=== PATIENT | female | born 1980 | race Caucasian/White ===

== ENCOUNTER 2022-03-20 18:11 | Emergency (ER) | payer OTHER, SELFPAY ==
[2022-03-20 18:23] VITALS: BP 140/103; PULSE 116; RESP 18; TEMP 37.7; O2SAT 96; BMI 22.7
--- NOTE | 2022-03-20 18:43 | ED_ITS ---
HPI - General Adult General Chief complaint: Cough Stated complaint: Fever, cough Time Seen by Provider: 03/20/22 18:19 History of Present Illness HPI narrative: This 41-year-old female comes in reporting fever, cough, nasal congestion that started about 3 or 4 days ago. She has been using [id number] medicines as needed and directed. She does not report any shortness of breath. Related Data Home Medications Medication Instructions Recorded Confirmed fluticasone propionate 115 inhalation 03/20/22 mcg-salmeterol 21 mcg/actuation HFA inhaler (Advair HFA) tiotropium bromide 18 mcg capsule inhalation 03/20/22 with inhalation device (Spiriva with HandiHaler) Previous Rx's Medication Instructions Recorded acetaminophen 300 mg-codeine 30 mg 1 tab PO Q6H PRN pain #20 tabs 03/20/22 tablet Allergies Allergy/AdvReac Type Severity Reaction Status Date / Time No Known Drug Allergies Allergy Verified 03/20/22 18:28 Review of Systems Status of ROS: Reports: 10 or more systems reviewed and unremarkable except as noted in History and below Narrative: Constitutional: No weight gain or loss. Recurrent fevers over the past couple days. Eyes: No discharge. No vision changes. HENT: Nasal congestion, no sore throat, no ear pain. Cardiovascular: No chest pain, no palpitations. Respiratory: No shortness of breath, no wheezes. She reports a cough. Gastrointestinal: No abdominal pain. She had vomiting and diarrhea about 10 days ago which resolved after 2 or 3 days. Genitourinary: No dysuria, no hematuria. Musculoskeletal: Normal range of motion. Skin: No rashes, no pruritis. Neurological: No dizziness, weakness, sensory change, speech change. Endo/Heme/Allergies: No bruising or bleeding. No polydipsia. Pysch: no suicidality, no anxiety, no insomnia. All other systems reviewed and are negative. PFSH PFSH Social History Smoking Status: Never smoker How often do you have a drink containing alcohol: never How often do you have six or more drinks on one occasion: Never AUDIT-C Alcohol total score: 0 Exam Narrative: Exam Narrative: Constitutional: Well-developed, well-nourished, no acute distress. HEENT: Normocephalic, atraumatic. Neck: Normal range of motion. Nontender. Supple. Heart: Regular. No murmurs. Normal rate. Intact distal pulses. Lungs: Clear to auscultation. No chest discomfort. No wheezes, rhonchi, or rales. Abdomen: Normal bowel sounds. Nontender. No rebound tenderness. Genitalia: Deferred. Back: No midline tenderness. Normal range of motion. Extremities: Normal range of motion. No injury. Skin: Intact. No rash. Warm. No erythema or pallor. Neurologic: No altered sensation. No weakness. Alert and oriented. Psychiatric: No suicidality. No anxiety or depression. No insomnia. Nursing notes and vitals signs are reviewed. Const: Vital Signs, click to edit/add: Vital Signs - 24 hr 03/20/22 18:23 Temperature 99.9 F H Pulse Rate [Pulse Oximeter] 116 H Respiratory Rate 18 [facility] 140/103 H Pulse Oximetry 96 Oxygen Delivery Me thod Room Air Course Vital Signs Vital signs: Initial Vital Signs Temperature 99.9 F H 03/20/22 18:23 Temperature Source Temporal Artery Scan 03/20/22 18:23 Pulse Rate 116 H 03/20/22 18:23 Respiratory Rate 18 03/20/22 18:23 Blood Pressure 140/103 H 03/20/22 18:23 Blood Pressure Mean 115 03/20/22 18:23 Blood Pressure Position Supine 03/20/22 18:23 Pulse Oximetry 96 03/20/22 18:23 Oxygen Delivery Method 03/20/22 18:23 Vital Signs Temperature 99.9 F H 03/20/22 18:23 Pulse Rate 116 H 03/20/22 18:23 Respiratory Rate 18 03/20/22 18:23 Blood Pressure 140/103 H 03/20/22 18:23 Pulse Oximetry 96 03/20/22 18:23 Oxygen Delivery Method 03/20/22 18:23 Temperature 99.9 F H 03/20/22 18:23 Pulse Rate 116 H 03/20/22 18:23 Respiratory Rate 18 03/20/22 18:23 Blood Pressure 140/103 H 03/20/22 18:23 Pulse Oximetry 96 03/20/22 18:23 Oxygen Delivery Method 03/20/22 18:23 Medical Decision Making MDM Narrative Medical decision making narrative: This patient comes in with typical symptoms of influenza and the nasal pharyngeal swab results returned positive for influenza A. She is beyond the time frame where Hernániflu is indicated. She did receive an oral dose of dexamethasone 10 mg. I did also provide prescription for Zofran and Tylenol 3. Lab Data Labs: Lab Results 03/20/22 Range/Units 18:31 SARS-CoV-2 (PCR) Negative SARS-CoV-2 (Negative) Influenza Type A (PCR) POSITIVE PCR FLU A A (Negative) Influenza Type B (PCR) Negative PCR FLU B (Negative) RSV (PCR) Negative PCR RSV (Negative) Discharge Plan Discharge Clinical Impression: Influenza A Patient Disposition: Home, Self-Care Condition: Unchanged Additional Instructions: Take medication as needed and indicated. Follow up with MD or return if worsening. Prescriptions: New acetaminophen-codeine 300-30 mg tablet 1 tab PO Q6H PRN (Reason: pain) Qty: 20 0RF No Action Spiriva with HandiHaler 18 mcg capsule, w/inhalation device INHALATION Label Comments: INHALE 1 CAPSULE (2 PUFFS) BY MOUTH DAILY Advair HFA 115-21 mcg/actuation HFA aerosol inhaler INHALATION Label Comments: PLEASE SEE ATTACHED FOR DETAILED DIRECTIONS Follow Up/Referrals: Provider,Not a Local [Primary Care Provider] - Stand Alone Forms: [employer] Info Instructions
[2022-03-20] MEDS: dexAMETHasone 10 MG/ML inj PO (18:53)
[2022-03-20 19:15] LABS: PCR FLU A POSITIVE PCR FLU A (Negative); PCR FLU B Negative PCR FLU B (Negative); PCR RSV Negative PCR RSV (Negative)
[2022-03-20 19:28] LABS: SARS PCR* Negative SARS-CoV-2 (Negative)
[2022-03-20] MEDS: KETOROLAC 30 MG/ML inj IM (19:43)
[2022-03-20 19:45] VITALS: PULSE 106; RESP 16; O2SAT 96
== END 2022-03-20 19:51 | disposition home or self-care (01) ==
PROVIDERS: Emergency Provider Emergency Medicine Emergency Medical Services
DX: J09.X2 Influenza due to identified novel influenza A virus with other respiratory manifestations (principal)
CPT/HCPCS: 87502; 87634; 87635; 96372; 99284; J1100; J1885

== ENCOUNTER 2023-01-26 14:22 | Outpatient (CLI) | payer OTHER, SELFPAY ==
--- NOTE | 2023-01-26 14:40 | CRLHL7_ITS ---
For Patients: As a result of the Century Cures Act, medical imaging exams and procedure reports are released immediately into your electronic medical record. You may view this report before your referring provider. If you have questions, please contact your health care provider. BILATERAL SCREENING MAMMOGRAM WITH COMPUTER-AIDED DETECTION TECHNIQUE: CC and MLO views were obtained. These mammographic images have been obtained using full-field digital technique. These mammographic images were interpreted with the benefit of computer-aided detection. COMPARISON FILM: Baseline. FINDINGS: The breasts are heterogeneously dense, which may obscure small masses IMPRESSION: There is no radiographic evidence for malignancy. ASSESSMENT: BI-RADS Category 1: Negative RECOMMENDATION: Routine screening mammogram in 1 year. A lay language report of this examination will be provided to the patient. Ren Diaz M.D. Diagnostic Radiologist [email or web address] ADDISON/Dictated by: Ren Diaz MD @ 01/27/2023 11:54:00 AM (Electronically Signed)
== END 2023-01-26 14:23 | disposition home or self-care (01) ==
PROVIDERS: Visit Provider Family Medicine
DX: Z12.31 Encounter for screening mammogram for malignant neoplasm of breast (principal); R92.2 Inconclusive mammogram
CPT/HCPCS: 77067

== ENCOUNTER 2024-03-13 07:42 | Emergency (ER) | payer OTHER, SELFPAY ==
[2024-03-13 07:51] VITALS: BP 127/87; PULSE 85; RESP 18; TEMP 36.8; O2SAT 99; BMI 23.9
--- NOTE | 2024-03-13 08:01 | ED.GENADULT ---
HPI - General Adult General Chief complaint: Abdominal Pain Stated complaint: Abdominal Pain R side Time Seen by Provider: 03/13/24 08:01 History of Present Illness HPI narrative: Patient presents to the emergency department complaining of right sided abdominal pain. Patient states this pain has been there for a month and progressively gotten worse. Patient's primary care provider ordered a CT scan which was done [address] scan per patient showed fluid in her bowels and was put on anti biotics. Patent has a colonoscopy scheduled on the . Would like to make sure nothing was missed. Has appendix had gallbladder removed. 43-year-old woman presenting to the emergency department with complaint of right-sided sharp abdominal pain waxes and wanes. Has been present now about 4 weeks. Today escalated in pain though not having so much pain at the moment that she would feel like needs pain medication. Did take some tramadol that was available in the home yesterday. Was seen 2 weeks ago and ordered for CT imaging which appears to have shown a ?colitis? and was given 3 day course of antibiotics. Has not changed anything. Does have a scheduled colonoscopy as well. History of cholecystectomy and no known problems related to this. Has not had any fever. No hematochezia. Stools have been ?sludgey Related Data Home Medications ?Medication ?Instructions ?Recorded ?Confirmed fluticasone propionate 115 inhalation 03/20/22 mcg-salmeterol 21 mcg/actuation HFA inhaler (Advair HFA) tiotropium bromide 18 mcg capsule inhalation 03/20/22 with inhalation device (Spiriva with HandiHaler) Previous Rx's ?Medication ?Instructions ?Recorded hyoscyamine sulfate 0.125 mg tablet 0.125 - 0.25 mg (1 - 2 x 0.125 mg) 03/13/24 PO QID PRN cramping #30 tabs Allergies Allergy/AdvReac Type Severity Reaction Status Date / Time bee venom protein (honey bee) Allergy Unknown Abdominal Verified 03/13/24 07:57 Pain Review of Systems Status of ROS: Reports: 6 or more systems reviewed and unremarkable except as noted in History and below [facility] Medical History History of vitamin D deficiency ?Z86.39 - Personal history of other endocrine, nutritional and metabolic disease (ICD-10) History of vitamin B deficiency ?Z86.39 - Personal history of other endocrine, nutritional and metabolic disease (ICD-10) History of positive purified protein derivative test (01/2017) ?Z92.89 - Personal history of other medical treatment (ICD-10) History of migraine ?Z86.69 - Personal history of other diseases of the nervous system and sense organs (ICD-10) History of eczema ?Z87.2 - Personal history of diseases of the skin and subcutaneous tissue (ICD-10) Surgical History Status post laparoscopic cholecystectomy (09/2018) ?Z90.49 - Acquired absence of other specified parts of digestive tract (ICD-10) History of tonsillectomy (11/2015) ?Z90.89 - Acquired absence of other organs (ICD-10) Family History (Updated 03/23/22 @ 13:08 by Mirela Poole ~ PSR) Other Diabetes Family history of ASCVD Rheumatic aortic disease Social History Smoking Status: Never smoker How often do you have a drink containing alcohol: never How often do you have six or more drinks on one occasion: Never AUDIT-C Alcohol total score: 0 Non-prescribed substance use: denies use Exam Narrative: Exam Narrative: Calm. Pleasant. Skin is warm and dry. She is well-perfused peripherally. No edema. Breathing easily. Heart in regular rate and rhythm without murmur rub or gallop. Soft abdomen. Nontender. No masses Const: Vital Signs, click to edit/add: Vital Signs - 24 hr 03/13/24 07:51 Temperature 98.2 F Pulse Rate [Right Pulse Oximeter] 85 Respiratory Rate 18 Blood Pressure [Ri ght Upper Arm] 127/87 Pulse Oximetry 99 Oxygen Delivery Me thod Room Air Documenting provider has reviewed patient's vital signs: yes Course Vital Signs Vital signs: Initial Vital Signs Temperature 98.2 F 03/13/24 07:51 Temperature Source Temporal Artery Scan 03/13/24 07:51 Pulse Rate 85 03/13/24 07:51 Pulse Rhythm Regular 03/13/24 07:51 Pulse Strength 3+ Normal 03/13/24 07:51 Respiratory Rate 18 03/13/24 07:51 Blood Pressure 127/87 03/13/24 07:51 Blood Pressure Mean 100 03/13/24 07:51 Blood Pressure Position Sitting 03/13/24 07:51 Pulse Oximetry 99 03/13/24 07:51 Oxygen Delivery Method Room Air 03/13/24 07:51 Vital Signs Temperature 98.2 F 03/13/24 07:51 Pulse Rate 85 03/13/24 07:51 Respiratory Rate 18 03/13/24 07:51 Blood Pressure 127/87 03/13/24 07:51 Pulse Oximetry 99 03/13/24 07:51 Oxygen Delivery Method Room Air 03/13/24 07:51 Temperature 98.2 F 03/13/24 07:51 Pulse Rate 85 03/13/24 07:51 Respiratory Rate 18 03/13/24 07:51 Blood Pressure 127/87 03/13/24 07:51 Pulse Oximetry 99 03/13/24 07:51 Oxygen Delivery Method Room Air 03/13/24 07:51 Medical Decision Making MDM Narrative Medical decision making narrative: Would suspect more of a delayed recovery here from colitis/enteritis. Might be related to post cholecystectomy but was not struggling prior to this event. No urinary tract symptoms otherwise. Apparently no lab work has been yet done. Can certainly look at that. Absent of reproducible abdominal pain at this time I do not think would likely need imaging depending on laboratory analysis. Upcoming colonoscopy is quite reasonable. She does not feel needs any treatment otherwise at this time. Labs are reassuring. See patient discharge plan for further discussion Focus on hydration. Might want to go with a telecommunications network engineer diet over the next few days. Follow-up with that colonoscopy as scheduled. Sending in prescription for hyoscyamine, a medication that might be helpful for cramping. Be seen for persistent and worsening pain, fever, intractable vomiting. Lab Data Lab results reviewed: Yes I reviewed the patient's lab results Labs: Lab Results 03/13/24 03/13/24 Range/Units 08:41 09:43 WBC 3.59 L (4.50-11.00) K/uL RBC 5.10 (4.00-5.20) m/uL Hgb 15.3 (12.0-16.0) gm/dL Hct 45.9 (33.0-51.0) % MCV 90 (80-100) fL MCH 30 (26-34) pg MCHC 33 (32-36) gm/dL RDW Coeff of Tej 12.5 (11.5-15.5) % Plt Count 228 (140-440) K/uL Neut % (Auto) 49.5 (42.0-72.0) % Lymph % (Auto) 35.1 (20-44) % Taliaferro % (Auto) 10.0 (0.0-11.0) % Eos % (Auto) 4.2 (0.0-7.0) % Baso % (Auto) 0.6 (0.0-3.0) % Neut # (Auto) 1.80 (1.7-7.0) K/uL Lymph # (Auto) 1.30 (0.90-2.90) K/uL Taliaferro # (Auto) 0.40 (0.00-0.90) K/UL Eos # (Auto) 0.20 (0.00-0.50) K/uL Baso # (Auto) 0.00 (0.00-0.30) K/uL Abs Immat Gran (auto) 0.00 (0.00-0.30) K/uL Imm/Tot Granulo (auto) 0.6 % Sodium 140 (135-149) mmol/L Potassium 4.1 (3.6-5.1) mmol/L Chloride 106 (96-114) mmol/L Carbon Dioxide 24 (20-32) mmol/L Anion Gap 10 (7-15) mEq/L BUN 9 (5-24) mg/dL Creatinine 0.8 (0.5-1.5) mg/dL Estimated Creat Clear 85.76 Estimated GFR 94 ml/min Glucose 84 (60-115) mg/dL Calcium 9.6 (8.4-10.6) mg/dL Total Bilirubin 0.7 (0.1-1.5) mg/dL Direct Bilirubin 0.2 (0.0-0.5) mg/dL AST 21 (12-35) U/L ALT 21 (4-35) U/L Alkaline Phosphatase 68 (40-150) U/L C-Reactive Protein < 0.5 L (0.5-1.0) mg/dL Total Protein 7.5 (6.0-8.3) g/dL Albumin 4.8 (3.3-5.0) g/dL Urine Color Yellow (Yellow) Urine Appearance Clear (Clear) Urine pH 7.0 (5.0-8.5) Ur Specific [place] 1.015 (1.000-1.030) Urine Protein Negative (Negative) Urine Glucose (UA) Negative (Negative) Urine Ketones Negative (Negative) Urine Blood Negative (Negative) Urine Nitrite Negative (Negative) Urine Bilirubin Negative (Negative) Urine Urobilinogen 0.2 (0.2-1.0) Ur Leukocyte Esterase Negative (Negative) Urine RBC 0-2 (0-2) Urine WBC 0-2 (0-5) Ur Squamous Epith Cells None (None-Few) Urine Bacteria None (None) Discharge Plan Discharge Clinical Impression: Right sided abdominal pain, Colitis Patient Disposition: Home w/ Parent or Adult Condition: Stable Additional Instructions: Focus on hydration. Might want to go with a telecommunications network engineer diet over the next few days. Follow-up with that colonoscopy as scheduled. Sending in prescription for hyoscyamine, a medication that might be helpful for cramping. Be seen for persistent and worsening pain, fever, intractable vomiting. Prescriptions: New hyoscyamine sulfate 0.125 mg tablet 0.125 - 0.25 mg PO QID PRN (Reason: cramping) Qty: 30 0RF No Action tiotropium bromide [Spiriva with HandiHaler] 18 mcg capsule, w/inhalation device INHALATION Patient Comments: INHALE 1 CAPSULE (2 PUFFS) BY MOUTH DAILY fluticasone propion-salmeterol [Advair HFA] 115-21 mcg/actuation HFA aerosol inhaler INHALATION Patient Comments: PLEASE SEE ATTACHED FOR DETAILED DIRECTIONS Follow Up/Referrals: Provider,Not a Local [Primary Care Provider] - Stand Alone Forms: [employer] Info Instructions
[2024-03-13 08:59] LABS: Basophils Percent Auto 0.6 % (0.0-3.0); Eosinophils Percent Auto 4.2 % (0.0-7.0); Hematocrit 45.9 % (33.0-51.0); Hemoglobin* 15.3 gm/dL (12.0-16.0); Immature Granulocytes Pct Auto 0.6 %; Lymphocytes Percent Auto 35.1 % (20-44); Mean Corpuscular HGB Conc 33 gm/dL (32-36); Mean Corpuscular Hemoglobin 30 pg (26-34); Mean Corpuscular Volume 90 fL (80-100); Neutrophils Percent Auto 49.5 % (42.0-72.0); Platelet Count* 228 K/uL (140-440); RDW Coefficient of Variation % 12.5 % (11.5-15.5); White Blood Count* 3.59 K/uL (4.50-11.00)
[2024-03-13 09:00] LABS: Slide Review Reflex No
[2024-03-13 09:12] LABS: Albumin* 4.8 g/dL (3.3-5.0); Chloride* 106 mmol/L (96-114)
[2024-03-13 09:13] LABS: Potassium* 4.1 mmol/L (3.6-5.1); Sodium* 140 mmol/L (135-149)
[2024-03-13 09:15] LABS: Alkaline Phosphatase* 68 U/L (40-150); Anion Gap 10 mEq/L (7-15); Aspartate Amino Transferase* 21 U/L (12-35); Bilirubin Direct* 0.2 mg/dL (0.0-0.5); Bilirubin Total* 0.7 mg/dL (0.1-1.5); Blood Urea Nitrogen* 9 mg/dL (5-24); Carbon Dioxide* 24 mmol/L (20-32); Creatinine* 0.8 mg/dL (0.5-1.5); Est. Creatinine Clearance* 85.76; Estimated Glomerular Filt Rate 94 ml/min; Total Protein* 7.5 g/dL (6.0-8.3)
[2024-03-13 09:16] LABS: Alanine Aminotransferase* 21 U/L (4-35); Calcium* 9.6 mg/dL (8.4-10.6); Glucose* 84 mg/dL (60-115)
[2024-03-13 09:21] LABS: C Reactive Protein* < 0.5 mg/dL (0.5-1.0)
[2024-03-13 10:17] LABS: Appearance Urine Clear (Clear); Bilirubin Urine Negative (Negative); Blood Urine Negative (Negative); Color Urine Yellow (Yellow); Glucose Urine Negative (Negative); Ketones Urine Negative (Negative); Protein Urine Negative (Negative); Specific Gravity Urine 1.015 (1.000-1.030); Urobilinogen Urine 0.2 (0.2-1.0)
[2024-03-13 10:18] LABS: Leukocyte Esterase Urine Negative (Negative); Nitrite Urine Negative (Negative); RBC Urine 0-2 (0-2); WBC Urine 0-2 (0-5)
== END 2024-03-13 11:14 | disposition home or self-care (01) ==
PROVIDERS: Emergency Provider Family Medicine
DX: K52.9 Noninfective gastroenteritis and colitis, unspecified (principal)
CPT/HCPCS: 36415; 80048; 80076; 81001; 85025; 86140; 99283; 99284

== ENCOUNTER 2024-03-25 12:56 | Emergency (ER) | payer OTHER, SELFPAY ==
[2024-03-25 13:18] VITALS: BP 150/94; PULSE 84; RESP 18; TEMP 36.6; O2SAT 96; BMI 22.7
--- NOTE | 2024-03-25 16:45 | CRLHL7_ITS ---
For Patients: As a result of the Century Cures Act, medical imaging exams and procedure reports are released immediately into your electronic medical record. You may view this report before your referring provider. If you have questions, please contact your health care provider. INDICATION: LLQ PAIN COMPARISON: None TECHNIQUE: Melo-scale and color Doppler ultrasound of the uterus and ovaries from a transvaginal approach. Transvaginal ultrasound of the pelvis was performed to better visualize the genitourinary organs, such as the ovaries and/or endometrium. Color-flow and spectral Doppler imaging of both ovaries is performed. FINDINGS: The uterus measures 7.2 x 3.8 x 4.5 cm and demonstrates normal echogenicity. No uterine masses. The endometrial stripe measures 0.8 cm in double thickness. Questionable small endometrial polyp near the uterine fundus measuring approximately 0.5 centimeters in greatest dimension versus small focal region of thickening of the endometrium with no internal flow on color Doppler. The cervix is normal. The right ovary measures 2.9 x 1.4 x 2.6 cm. Physiologic appearance without a dominant cystic lesion or solid ovarian / adnexal mass. There is normal arterial and venous color Doppler flow and normal arterial and venous waveforms on duplex Doppler. The left ovary measures 2.1 x 1.0 x 1.4 cm. Physiologic appearance without a dominant cystic lesion or solid ovarian / adnexal mass. There is normal arterial and venous color Doppler flow and normal arterial and venous waveforms on duplex Doppler. No free fluid. IMPRESSION: 1. No sonographic evidence of an acute process involving the pelvis. 2. Questionable small endometrial polyp near the uterine fundus measuring approximately 0.5 centimeters in greatest dimension versus small focal region of thickening of the endometrium. Recommend outpatient consultation with gynecology for further management recommendations. Dictated by García Corbin MD @ 03/25/2024 5:58:15 PM (Electronically Signed)
--- NOTE | 2024-03-25 16:45 | CRLHL7_ITS ---
For Patients: As a result of the Century Cures Act, medical imaging exams and procedure reports are released immediately into your electronic medical record. You may view this report before your referring provider. If you have questions, please contact your health care provider. Indication: RLQ PAIN Technique: CT abdomen/pelvis with IV contrast, 71 mL Isovue 370 Comparison: None Findings: Lower thorax: There are few small regions of subpleural atelectasis/scarring in the dependent aspect of the right lower lobe. Abdomen/pelvis: No suspicious hepatic lesions. 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 Status post cholecystectomy. No significant biliary ductal dilatation. The spleen, pancreas, and bilateral adrenal glands are unremarkable in appearance. The kidneys and ureters are unremarkable in appearance. The bladder is decompressed and not well evaluated, but unremarkable in appearance for degree of distention. The uterus and bilateral ovaries are normal in appearance. There is no evidence of bowel obstruction or inflammation. The appendix is normal in appearance. No free fluid or free air. No abscess. No abdominopelvic lymphadenopathy. The vasculature is unremarkable. Soft tissue/musculoskeletal: Unremarkable. Impression: 1. No CT evidence of acute process involving the abdomen or pelvis. 2. Incidental findings as detailed above. Please note that all CT scans at this facility use dose modulation, iterative reconstruction, and/or weight-based dosing when appropriate to reduce radiation dose to as low as reasonably achievable. Dictated by García Corbin MD @ 03/25/2024 6:05:02 PM (Electronically Signed)
--- NOTE | 2024-03-25 16:47 | ED.GENADULT ---
HPI - General Adult General Chief complaint: Abdominal Pain Stated complaint: Abdominal pain, vomiting Time Seen by Provider: 03/25/24 16:30 Source: patient Mode of arrival: ambulatory Limitations: no limitations History of Present Illness HPI narrative: 43-year-old female presenting today with worsening abdominal pain. Patient has been dealing with abdominal pain for over a month. She had an abdominal CT scan done on 02/28/2024 which showed some fluid in the proximal colon which could be seen with diarrheal illness or low-grade colitis, otherwise no acute intra-abdominal abnormality noted. She was then seen in the ER 03/13 when she had a full panel of lab investigations done which were unremarkable. Patient does have a colonoscopy scheduled for tomorrow but has not started the prep because she is in so much pain. She states that she vomits on and off. Pain comes in waves. And it makes her double over in pain. She states that she has not had a solid bowel movement in over a month. She denies dysuria, increased urinary frequency or urgency. Periods have been monthly and normal. Her last 1 was 1 week ago. She states that she has fevers that come and go, highest 1 was 102 couple of weeks ago. No blood in her stool. No blood in her vomitus. She states that the pain is generally on the right lower quadrant but sometimes it migrates. Today she feels in the right lower quadrant as well as the epigastric region. Related Data Home Medications ?Medication ?Instructions ?Recorded ?Confirmed fluticasone propionate 115 inhalation 03/20/22 mcg-salmeterol 21 mcg/actuation HFA inhaler (Advair HFA) tiotropium bromide 18 mcg capsule inhalation 03/20/22 with inhalation device (Spiriva with HandiHaler) Previous Rx's ?Medication ?Instructions ?Recorded hyoscyamine sulfate 0.125 mg tablet 0.125 - 0.25 mg (1 - 2 x 0.125 mg) 03/13/24 PO QID PRN cramping #30 tabs peg 3350-electrolytes 236 240 ml PO Q10M #4,000 mL 03/23/24 gram-22.74 gram-6.74 gram-5.86 gram solution (Golytely) Allergies Allergy/AdvReac Type Severity Reaction Status Date / Time bee venom protein (honey bee) Allergy Unknown Abdominal Verified 03/25/24 17:29 Pain Review of Systems Status of ROS: Reports: 10 or more systems reviewed and unremarkable except as noted in History and below [facility] Medical History History of vitamin D deficiency ?Z86.39 - Personal history of other endocrine, nutritional and metabolic disease (ICD-10) History of vitamin B deficiency ?Z86.39 - Personal history of other endocrine, nutritional and metabolic disease (ICD-10) History of positive purified protein derivative test (01/2017) ?Z92.89 - Personal history of other medical treatment (ICD-10) History of migraine ?Z86.69 - Personal history of other diseases of the nervous system and sense organs (ICD-10) History of eczema ?Z87.2 - Personal history of diseases of the skin and subcutaneous tissue (ICD-10) Surgical History Status post laparoscopic cholecystectomy (09/2018) ?Z90.49 - Acquired absence of other specified parts of digestive tract (ICD-10) History of tonsillectomy (11/2015) ?Z90.89 - Acquired absence of other organs (ICD-10) Family History Other Diabetes Family history of ASCVD Rheumatic aortic disease Social History Smoking Status: Never smoker How often do you have a drink containing alcohol: never How often do you have six or more drinks on one occasion: Never AUDIT-C Alcohol total score: 0 Non-prescribed substance use: denies use service: No Exam Narrative: Exam Narrative: Well-nourished well-developed patient, lying in bed with her eyes closed, moaning in pain. Alert and oriented x3. Answers questions appropriately. Patient speaks in full sentences without needing to catch her breath. HEENT: Normocephalic atraumatic. Pupils are equally round reactive to light. Extraocular muscles are intact. Conjunctivae are moist without any icterus noted. Moist mucous membranes. Posterior pharynx is normal. Neck is soft without any lymphadenopathy or thyromegaly. No masses are appreciated. Cardiovascular: Heart is regular rate and rhythm S1 and S2 are present without any murmurs. Lungs: Clear to auscultation bilaterally no wheezes rhonchi or rales are appreciated. Patient takes deep breaths without any discomfort. Abdomen: Soft and nondistended with normal bowel sounds. Patient winces in pain with palpation of the epigastric region, the right upper quadrant region, the right lower quadrant region. She also has suprapubic discomfort. Extremities: Bilateral lower extremities are without edema. Normal DP and PT pulses. Skin: Well perfused without any obvious rashes. Const: Vital Signs, click to edit/add: Vital Signs - 24 hr 03/25/24 13:18 Temperature 98 F Pulse Rate [Pulse Oximeter] 84 Respiratory Rate 18 Blood Pressure [Ri ght Upper Arm] 150/94 H Pulse Oximetry 96 Oxygen Delivery Me thod Room Air Course Course ED Course: We discussed repeating blood work and imaging today patient like to do this. She is also requesting ultrasound. We discussed exactly what she wanted to have looked at with the ultrasound she was not sure. As far as imaging goes we have not gotten a clear look at her uterus and ovaries. This is not exactly where she is having discomfort however since her discomfort is now migrating we will go ahead and do that as well today in addition to repeating the abdominal CT scan. IV is established and patient received 500 mL of normal saline and IV Zofran. CBC is normal. Chemistries are normal. LFTs are slightly elevated with an AST of 68 an ALT of 83. Normal CRP. Normal lipase. Urinalysis is unremarkable, not a clean catch. Pelvic ultrasound is unremarkable aside from a small potential endometrial polyp. Abdominal CT did not show any evidence of acute pathology. Vital Signs Vital signs: Initial Vital Signs Temperature 98 F 03/25/24 13:18 Temperature Source Temporal Artery Scan 03/25/24 13:18 Pulse Rate 84 03/25/24 13:18 Respiratory Rate 18 03/25/24 13:18 Blood Pressure 150/94 H 03/25/24 13:18 Blood Pressure Mean 112 H 03/25/24 13:18 Pulse Oximetry 96 03/25/24 13:18 Oxygen Delivery Method Room Air 03/25/24 13:18 Vital Signs Temperature 98 F 03/25/24 13:18 Pulse Rate 84 03/25/24 13:18 Respiratory Rate 18 03/25/24 13:18 Blood Pressure 150/94 H 03/25/24 13:18 Pulse Oximetry 96 03/25/24 13:18 Oxygen Delivery Method Room Air 03/25/24 13:18 Temperature 98 F 03/25/24 13:18 Pulse Rate 84 03/25/24 13:18 Respiratory Rate 18 03/25/24 13:18 Blood Pressure 150/94 H 03/25/24 13:18 Pulse Oximetry 96 03/25/24 13:18 Oxygen Delivery Method Room Air 03/25/24 13:18 Medications Administered Medications: Discontinued Medications Generic Name Dose Route Start Last Admin Trade Name Freq PRN Reason Stop Dose Admin Sodium Chloride 500 mls @ 500 mls/hr 03/25/24 16:44 03/25/24 17:03 0.9 % Sodium Chloride 500 Ml IV 03/25/24 17:43 500 mls/hr .Q1H ONE Administration Ondansetron HCl 4 mg 03/25/24 16:44 03/25/24 17:01 Ondansetron 2 Mg/Ml Inj IVP 03/25/24 16:45 4 mg ONCE ONE Administration Medical Decision Making MDM Narrative Medical decision making narrative: 43-year-old female with abdominal pain, unclear etiology. Patient is encouraged to keep her colonoscopy appointment and follow up with a peoples[employer] hr developer as well. Medical Records Medical records reviewed: Yes I reviewed the patient's medical records Lab Data Lab results reviewed: Yes I reviewed the patient's lab results Labs: Lab Results 03/25/24 03/25/24 Range/Units 17:00 17:15 WBC 3.54 L (4.50-11.00) K/uL RBC 4.88 (4.00-5.20) m/uL Hgb 14.6 (12.0-16.0) gm/dL Hct 42.8 (33.0-51.0) % MCV 88 (80-100) fL MCH 30 (26-34) pg MCHC 34 (32-36) gm/dL RDW Coeff of Tej 12.2 (11.5-15.5) % Plt Count 148 (140-440) K/uL Neut % (Auto) 56.7 (42.0-72.0) % Lymph % (Auto) 35.6 (20-44) % Burnet % (Auto) 7.1 (0.0-11.0) % Eos % (Auto) 0.3 (0.0-7.0) % Baso % (Auto) 0.3 (0.0-3.0) % Neut # (Auto) 2.00 (1.7-7.0) K/uL Lymph # (Auto) 1.30 (0.90-2.90) K/uL Burnet # (Auto) 0.30 (0.00-0.90) K/UL Eos # (Auto) 0.00 (0.00-0.50) K/uL Baso # (Auto) 0.00 (0.00-0.30) K/uL Abs Immat Gran (auto) 0.00 (0.00-0.30) K/uL Imm/Tot Granulo (auto) 0.0 % Sodium 137 (135-149) mmol/L Potassium 3.9 (3.6-5.1) mmol/L Chloride 105 (96-114) mmol/L Carbon Dioxide 24 (20-32) mmol/L Anion Gap 8 (7-15) mEq/L BUN 10 (5-24) mg/dL Creatinine 0.6 (0.5-1.5) mg/dL Estimated Creat Clear 118.78 Estimated GFR 115 ml/min Glucose 114 (60-115) mg/dL Lactate 1.2 (0.5-1.9) mmol/L Calcium 9.0 (8.4-10.6) mg/dL Total Bilirubin 0.5 (0.1-1.5) mg/dL Direct Bilirubin 0.2 (0.0-0.5) mg/dL AST 68 H (12-35) U/L ALT 83 H (4-35) U/L Alkaline Phosphatase 101 (40-150) U/L C-Reactive Protein < 0.5 L (0.5-1.0) mg/dL Total Protein 7.3 (6.0-8.3) g/dL Albumin 4.5 (3.3-5.0) g/dL Lipase 99 (23-300) U/L Urine Color Yellow (Yellow) Urine Appearance Cloudy A (Clear) Urine pH 7.0 (5.0-8.5) Ur Specific [place] 1.025 (1.000-1.030) Urine Protein 1+ A (Negative) Urine Glucose (UA) Negative (Negative) Urine Ketones 3+ A (Negative) Urine Blood Negative (Negative) Urine Nitrite Negative (Negative) Urine Bilirubin Negative (Negative) Urine Urobilinogen 0.2 (0.2-1.0) Ur Leukocyte Esterase Trace A (Negative) Urine RBC 0-2 (0-2) Urine WBC 2-5 (0-5) Ur Squamous Epith Cells Moderate A (None-Few) Urine Bacteria Moderate A (None) Urine HCG, Qual Negative (Negative) Imaging Data US - abdomen: Attestation: I have reviewed the pertinent imaging results. Radiologist's impression: TECHNIQUE: Melo-scale and color Doppler ultrasound of the uterus and ovaries from a transvaginal approach. Transvaginal ultrasound of the pelvis was performed to better visualize the genitourinary organs, such as the ovaries and/or endometrium. Color-flow and spectral Doppler imaging of both ovaries is performed. FINDINGS: The uterus measures 7.2 x 3.8 x 4.5 cm and demonstrates normal echogenicity. No uterine masses. The endometrial stripe measures 0.8 cm in double thickness. Questionable small endometrial polyp near the uterine fundus measuring approximately 0.5 centimeters in greatest dimension versus small focal region of thickening of the endometrium with no internal flow on color Doppler. The cervix is normal. The right ovary measures 2.9 x 1.4 x 2.6 cm. Physiologic appearance without a dominant cystic lesion or solid ovarian / adnexal mass. There is normal arterial and venous color Doppler flow and normal arterial and venous waveforms on duplex Doppler. The left ovary measures 2.1 x 1.0 x 1.4 cm. Physiologic appearance without a dominant cystic lesion or solid ovarian / adnexal mass. There is normal arterial and venous color Doppler flow and normal arterial and venous waveforms on duplex Doppler. No free fluid. IMPRESSION: 1. No sonographic evidence of an acute process involving the pelvis. 2. Questionable small endometrial polyp near the uterine fundus measuring approximately 0.5 centimeters in greatest dimension versus small focal region of thickening of the endometrium. Recommend outpatient consultation with gynecology for further management recommendations. CT scan - abdomen: Attestation: I have reviewed the pertinent imaging results. Radiologist's impression: CT abdomen/pelvis with IV contrast, 71 mL Isovue 370 Comparison: None Findings: Lower thorax: There are few small regions of subpleural atelectasis/scarring in the dependent aspect of the right lower lobe. Abdomen/pelvis: No suspicious hepatic lesions. 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 Status post cholecystectomy. No significant biliary ductal dilatation. The spleen, pancreas, and bilateral adrenal glands are unremarkable in appearance. The kidneys and ureters are unremarkable in appearance. The bladder is decompressed and not well evaluated, but unremarkable in appearance for degree of distention. The uterus and bilateral ovaries are normal in appearance. There is no evidence of bowel obstruction or inflammation. The appendix is normal in appearance. No free fluid or free air. No abscess. No abdominopelvic lymphadenopathy. The vasculature is unremarkable. Soft tissue/musculoskeletal: Unremarkable. Impression: 1. No CT evidence of acute process involving the abdomen or pelvis. 2. Incidental findings as detailed above. Discharge Plan Discharge Clinical Impression: Right sided abdominal pain Patient Disposition: Home, Self-Care Condition: Unchanged Additional Instructions: Recommend you keep your colonoscopy appointment as this will be very important next step in your workup. Also recommend that you follow-up with a peoples[employer] hr developer to discuss other potential causes of abdominal discomfort. Prescriptions: No Action tiotropium bromide [Spiriva with HandiHaler] 18 mcg capsule, w/inhalation device INHALATION Patient Comments: INHALE 1 CAPSULE (2 PUFFS) BY MOUTH DAILY fluticasone propion-salmeterol [Advair HFA] 115-21 mcg/actuation HFA aerosol inhaler INHALATION Patient Comments: PLEASE SEE ATTACHED FOR DETAILED DIRECTIONS hyoscyamine sulfate 0.125 mg tablet 0.125 - 0.25 mg PO QID PRN (Reason: cramping) Qty: 30 0RF peg 3350-electrolytes [Golytely] 236-22.74-6.74 -5.86 gram recon soln 240 ml PO Q10M Qty: 4000 0RF Rx Instructions: until fecal effluent is clear Follow Up/Referrals: Provider,Not a Local [Primary Care Provider] - Stand Alone Forms: [employer] Info Instructions
[2024-03-25] MEDS: ONDANSETRON 2 MG/ML inj 4 MG IVP (17:01)
[2024-03-25] MEDS: 0.9 % SODIUM CHLORIDE 500 ML 500 ML IV (17:03)
[2024-03-25 17:11] LABS: Lactate* 1.2 mmol/L (0.5-1.9)
[2024-03-25 17:18] LABS: Basophils Percent Auto 0.3 % (0.0-3.0); Eosinophils Percent Auto 0.3 % (0.0-7.0); Hematocrit 42.8 % (33.0-51.0); Hemoglobin* 14.6 gm/dL (12.0-16.0); Lymphocytes Percent Auto 35.6 % (20-44); Mean Corpuscular HGB Conc 34 gm/dL (32-36); Mean Corpuscular Hemoglobin 30 pg (26-34); Mean Corpuscular Volume 88 fL (80-100); Monocytes Percent Auto 7.1 % (0.0-11.0); Neutrophils Percent Auto 56.7 % (42.0-72.0); Platelet Count* 148 K/uL (140-440); RDW Coefficient of Variation % 12.2 % (11.5-15.5); Red Blood Count 4.88 m/uL (4.00-5.20); White Blood Count* 3.54 K/uL (4.50-11.00)
[2024-03-25 17:24] LABS: Appearance Urine Cloudy (Clear); Bilirubin Urine Negative (Negative); Blood Urine Negative (Negative); Color Urine Yellow (Yellow); Glucose Urine Negative (Negative); Ketones Urine 3+ (Negative); Leukocyte Esterase Urine Trace (Negative); Nitrite Urine Negative (Negative); Protein Urine 1+ (Negative); Specific Gravity Urine 1.025 (1.000-1.030); Urobilinogen Urine 0.2 (0.2-1.0)
[2024-03-25 17:33] LABS: Slide Review Reflex No
[2024-03-25 17:35] LABS: Albumin* 4.5 g/dL (3.3-5.0)
[2024-03-25 17:36] LABS: Chloride* 105 mmol/L (96-114); Potassium* 3.9 mmol/L (3.6-5.1); Sodium* 137 mmol/L (135-149)
[2024-03-25 17:38] LABS: Creatinine* 0.6 mg/dL (0.5-1.5); Est. Creatinine Clearance* 118.78; Estimated Glomerular Filt Rate 115 ml/min
[2024-03-25 17:39] LABS: Alanine Aminotransferase* 83 U/L (4-35); Alkaline Phosphatase* 101 U/L (40-150); Anion Gap 8 mEq/L (7-15); Aspartate Amino Transferase* 68 U/L (12-35); Bilirubin Direct* 0.2 mg/dL (0.0-0.5); Bilirubin Total* 0.5 mg/dL (0.1-1.5); Blood Urea Nitrogen* 10 mg/dL (5-24); Carbon Dioxide* 24 mmol/L (20-32); Glucose* 114 mg/dL (60-115); Lipase* 99 U/L (23-300); Total Protein* 7.3 g/dL (6.0-8.3)
[2024-03-25 17:45] LABS: C Reactive Protein* < 0.5 mg/dL (0.5-1.0)
[2024-03-25 17:46] LABS: Bacteria Urine Moderate; RBC Urine 0-2 (0-2); Squamous Epithelial Cell Urine Moderate (None-Few); Ur HCG Qualitative* Negative (Negative)
[2024-03-25 18:21] VITALS: BP 133/93; PULSE 84; RESP 16; O2SAT 98
== END 2024-03-25 18:24 | disposition home or self-care (01) ==
PROVIDERS: Emergency Provider Family Medicine
DX: R10.9 Unspecified abdominal pain (principal)
CPT/HCPCS: 36415; 74177; 76830; 80048; 80076; 81001; 81025; 83605; 83690; 85025; 86140; 87086; 93976; 96374; 99284; J2405; J7030; Q9967

== ENCOUNTER 2024-03-26 08:37 | Outpatient (CLI) | payer OTHER, SELFPAY ==
--- NOTE | 2024-03-26 10:20 | W.ANESCHARGE ---
Anesthesia Charges Start Date/Time Anesthesia Start Date: 03/26/24 Anesthesia Start Time: 09:46 Stop Date/Time Anesthesia Stop Date: 03/26/24 Anesthesia Stop Time: 10:17
== END 2024-03-26 08:38 | disposition home or self-care (01) ==
LOC: OP CLINIC 08:39
PROVIDERS: Visit Provider Surgery
DX: K59.00 Constipation, unspecified (principal); D12.2 Benign neoplasm of ascending colon; D12.8 Benign neoplasm of rectum; R19.7 Diarrhea, unspecified; R10.9 Unspecified abdominal pain
CPT/HCPCS: 00811; 45380; 45385; 88305; J2405; J2704

== ENCOUNTER 2024-04-05 10:37 | Outpatient (CLI) | payer OTHER, SELFPAY ==
[2024-04-07 20:06] LABS: HPV Source Cervical; HPV, High Risk by TMA Not Detected
== END 2024-04-05 10:38 | disposition home or self-care (01) ==
PROVIDERS: Visit Provider Obstetrics & Gynecology
DX: N92.0 Excessive and frequent menstruation with regular cycle (principal); Z12.4 Encounter for screening for malignant neoplasm of cervix
CPT/HCPCS: 84443; 87624; 87625; 88141; 88142